=== PATIENT | female | born 1975 | race Caucasian/White ===

== ENCOUNTER 2017-05-05 11:11 | Emergency (ER) | payer BC ==
[~2017-05-05] VITALS: Ht 157.5 cm; Wt 58.0 kg
[2017-05-05] MEDS ORDERED: TRAMADOL HYDROC50 MG PO (12:31)
[2017-05-05] MEDS ORDERED: MOTRIN800 MG PO (12:31)
[2017-05-05 14:45] VITALS: BP 109/73
== END 2017-05-05 14:45 | disposition home or self-care (01) | DRG 563 ==
LOC: ED 11:11
DX: S86.911A Strain of unspecified muscle(s) and tendon(s) at lower leg level, right leg, initial encounter (principal); W17.89XA Other fall from one level to another, initial encounter